=== PATIENT | male | born 1945 | race Caucasian/White ===

== ENCOUNTER → 2018-06-08 | Outpatient (CLI) | payer BC, MEDICARE ==
[~2018-06-08] MED LIST: ALLOPURINOL100 MG PO; ASPIR 8181 MG PO; CINNAMON500 MG PO; CIPRO500 MG PO; CITALOPRAM HBR40 MG PO; CO Q-10200 MG PO; CO Q10200 MG PO; DILTIAZEM 24HR180 MG PO; FISH OIL 1,0001 EAC2 PO; FISH/FLAX/BORAGE PO; GARLIC1000 MG PO; GARLIC2000 MG PO; GINKGO BILOBA120 MG PO; GINKO BILOBA PO; GLUCOSAMINE &1 EAC1 PO; HYDROCHLOROTHIA25 MG PO; MAGNESIUM PO; MELOXICAM15 MG PO; METOPROLOL SUCC50 MG PO; MILK THISTLE500 MG PO; NORCO 10-325 T1 EACH PO; OMEPRAZOLE40 MG PO; POTASSIUM GLUCO99 MG PO; POTASSIUM GLUCONATE PO; PRAVASTATIN SOD40 MG PO; RAMIPRIL10 MG PO; RAMIPRIL5 MG PO; RANEXA500 MG PO; SELENIUM200 MC1 PO; SELENOMAX200 MCG PO; VIT A PO; VIT D3 PO; VIT E PO; VITAMIN A8000 UNIT PO; VITAMIN B COMP1 EACH PO; VITAMIN C500 M1 PO; VITAMIN D-32000 UNIT PO; VITAMIN D31000 UNI1 PO; VITAMIN E1000 UNI2 PO; [UNRECOGNIZED DRUG - OTHER] PO
--- NOTE | 2018-06-08 12:17 | Diagnostic Imaging Report ---
PROCEDURE:CT PELVIS WITHOUT CONTRAST COMPARISON:None. INDICATIONS:HERNIA TECHNIQUE:CT images were created without intravenous contrast. FINDINGS: SOFT TISSUES: Fat containing right sided femoral hernia (anterior to the right inguinal canal) with fat stranding suggestive of inflammation/incarceration. No bowel loops are present within the hernia sac. Prominence adjacent subcentimeter lymph nodes, likely reactive. PELVIC NODES:Normal. PELVIC ORGANS:Surgical clips are present status post prostatectomy. BONES:No acute findings. No suspicious lytic or blastic lesions. Degenerative disc changes at L5-S1. OTHER:Atherosclerotic calcifications noted. CONCLUSION: Fat containing right sided femoral hernia with fat stranding suggestive of inflammation/incarceration. No bowel loops are present within the hernia sac. Findings discussed in person with Dr. Kyle Robbins on 06/08/18 at 12:10 PM. Dictated by: LOR TRIVEDI M.D. on 06/08/2018 at 12:23 Electronically approved by: LOR TRIVEDI M.D. on 06/08/2018 at 12:23
== END ==
LOC: CT 10:59
PROVIDERS: ATTEND Surgery
DX: R22.9 Localized swelling, mass and lump, unspecified (principal)
CPT/HCPCS: 72192

== ENCOUNTER → 2018-06-09 | Day surgery (SDC) | payer BC, MEDICARE ==
[2018-06-08 13:20] LABS: BASOPHILS # (AUTO) 0.1 (0.0-0.1); BASOPHILS % 0.5 % (0.0-1.0); EOSINOPHILS # (AUTO) 0.1 (0.0-0.4); EOSINOPHILS % 0.7 % (0.0-6.0); HEMOGLOBIN 14.8 g/dL (14.0-18.0); LYMPHOCYTES # (AUTO) 1.8 (1.0-3.2); LYMPHOCYTES % 15.5 % (18.0-39.1); MEAN CORPUSCULAR HEMOGLOBIN 30.6 pg (28-32); MEAN CORPUSCULAR HGB CONC 34.4 g/dL (31-35); MEAN CORPUSCULAR VOLUME 88.8 fL (81-99); MONOCYTES # (AUTO) 1.1 (0.2-0.8); NEUTROPHILS # (AUTO) 8.7 (2.1-6.9); PLATELET COUNT 304 x10e3/uL (140-360); RED BLOOD COUNT 4.84 x10e6/uL (4.3-5.7); RED CELL DISTRIBUTION WIDTH 13.4 % (11.7-14.4)
[2018-06-08 13:35] LABS: ANION GAP 17.3 mmol/L (8-16); BLOOD UREA NITROGEN 18 mg/dL (7-26); BUN/CREATININE RATIO 16 (6-25); CALCIUM 10.1 mg/dL (8.4-10.2); CARBON DIOXIDE 27 mmol/L (22-29); CHLORIDE 98 mmol/L (98-107); CREATININE, SERUM 1.11 mg/dL (0.72-1.25); EST GLOMERULAR FILTRATION RATE > 60 ML/MIN (60-); GLUCOSE 95 mg/dL (74-118); POTASSIUM 4.3 mmol/L (3.5-5.1); SODIUM 138 mmol/L (136-145)
--- NOTE | 2018-06-08 14:14 | Diagnostic Imaging Report ---
PROCEDURE: Frontal and lateral views of the chest. COMPARISON: None. INDICATIONS: PRE-OPERATIVE CHEST X-RAY FOR HERNIA SURGERY FINDINGS: Lines/tubes: None. Lungs: The lungs are well inflated and clear. Ill-defined 9 mm nodular density projecting over the posterior aspect of the right ninth rib seen only on the frontal view, is most consistent with a nipple shadow. There is no evidence of pneumonia or pulmonary edema. Pleura: There is no pleural effusion or pneumothorax. Heart and mediastinum: The heart and the mediastinum are normal. Bones: No acute bony abnormality. Degenerative changes in the thoracic spine. IMPRESSION: 1. No acute cardiopulmonary abnormalities. Ferdy Amador M.D. Dictated by: Fredy Amador M.D. on 06/08/2018 at 14:19 Electronically approved by: Fredy Amador M.D. on 06/08/2018 at 14:19
[~2018-06-09] MED LIST changes: +BUPIVACAINE 0.25%/EPI 30ML SDV INJ ONE; +CEFAZOLIN SOD 1 GM VIAL ONE; +DEXAMETHASONE SOD PHOS INJ 4 MG/ML VIAL ONE; +EPHEDRINE SULFATE INJ 50 MG/10 ML SYR ONE; +FENTANYL CITRATE/PF 100MCG/2 ML INJ ONE; +GLYCOPYRROLATE INJ 1MG/ 5 ML SYR ONE; +KETOROLAC TROMETHAMINE 30 MG/ML VIAL ONE; +LIDOCAINE HCL 2% LOCAL INJ 5 ML SDV VIAL INJ ONE; +MIDAZOLAM HCL 2 MG/2 ML VIAL ONE; +NEOSTIGMINE 5 MG/5ML SYR ONE; +ONDANSETRON HCL INJ 2 MG/ML VIAL ONE; +PHENYLEPHRINE HCL 1% 10 MG/ML VIAL ONE; +PROPOFOL IV EMULSION 10 MG/ML 20 ML VIAL ONE; +ROCURONIUM BROMIDE 10 MG/ML 5ML VIAL ONE; +SEVOFLURANE INHAL SOLN 250 ML PEN BTL ONE
--- NOTE | 2018-06-09 14:11 | Operative Report ---
DATE OF PROCEDURE: June 09, 2018 PREOPERATIVE DIAGNOSIS: Strangulated right femoral hernia. POSTOPERATIVE DIAGNOSIS: Strangulated ventral hernia at the right groin. PROCEDURE PERFORMED: Exploration of the right groin to repair strangulated ventral hernia at the right groin. INSPECTOR CASING: JOSÉ MIGUEL Blankenship ESTIMATED BLOOD LOSS: Minimal. DRAINS: None. COMPLICATIONS: None. INDICATIONS AND FINDINGS: The patient is a pleasant 72-year-old male who for about 2 months had noticed a lump in the right groin that progressively was getting larger and more tender. Patient stated that initially he could squeeze the bulge, but during the last several days it had become fixed and unable to be squeezed in. The patient had a history of radical prostatectomy with pelvic lymph node dissection several years ago for prostatic cancer. Preoperatively the patient's physical exam revealed a tender mass in the right groin located at what appeared to be in the femoral region of the groin. A preoperative CT scan revealed contents of the hernia to be fat with inflammatory changes. There was no evidence of intraoperative femoral herniation. INTRAOPERATIVE FINDINGS: The patient had a previous midline prostatectomy, a radical prostatectomy scar that was healed. Of note is the fact that he said that he was told that he had a hernia repair at the time of a radical prostatectomy by his urologist at the time. The patient's hernia was located at the level of the internal ring with extension of a strangulated piece of fat that extended below the inguinal external ring into the femoral region, thus the preoperative diagnosis of femoral herniation. However, there was no evidence of indirect hernia sac. The herniation was at the level of the internal ring with a herniation of properitoneal fat which had strangulated and necrosed. This defect was in the area of the internal ring. DESCRIPTION OF PROCEDURE: With the patient lying on the table in the supine position after administration of general anesthesia, he was prepped and draped for exploration of the right groin. An incision was made slightly inferior to the usual transverse inguinal incision for standard repair of right inguinal hernia because of the possibility of the preoperative diagnosis of femoral herniation. The dissection was carried down through the skin and subcutaneous tissue until the palpable hernia was identified. The palpable mass was identified, extended below the inguinal ligament into the right femoral region. However, it was then finally identified as originated from the right groin inguinal area through the external ring, and at this point then we exposed the external oblique aponeurosis, incised it, and then transected the external ring. Then we explored the right inguinal canal, developing leaves of the external oblique aponeurosis, and then dissecting free the herniated strangulated fat from the cord. This fat was then highly ligated and excised with 2-0 silk and Vicryl. There was no evidence of active infection or even fluid. It was just inflamed. At this point then we explored the cord. We searched for an indirect hernia sac. None was found. The internal inguinal ring was wide. We found a reflection of the peritoneum at that level, and then we dissected free the cord from the internal ring and preperitoneal area. We then reduced that wide neck of peritoneal reflection, which was empty, and then created a pocket in the preperitoneal space to accommodate the UltraPro hernia system oval type mesh, which was deployed in the groin region with the underlay part of the mesh over the direct space including the femoral canal region, which was free of any herniation. At this point, we then split the mesh at the level of the internal ring and secured the mesh to the local tissues using a series of interrupted 2-0 Ethibond sutures, which were also used to close the slit of the mesh to accommodate the cord. The repair appeared to be strong. The sponge and instrument count was correct. Irrigated the wound. We gave him a local field block with 0.25% Marcaine with epinephrine, and then we closed the wound in layers using 2-0 Vicryl for the external oblique aponeurosis, 2-0 catgut for the soft tissues, and the skin was closed using taurus. Marcaine 0.25% with epinephrine was given as local block at the end of the case to the wound also. The patient tolerated the procedure well, was taken to the recovery room in stable condition. Job#: [id number] EV
== END | disposition home or self-care (01) ==
LOC: OR 07:02
PROVIDERS: ATTEND Surgery
DX: K43.6 Other and unspecified ventral hernia with obstruction, without gangrene (principal); I10 Essential (primary) hypertension; E78.5 Hyperlipidemia, unspecified; I25.2 Old myocardial infarction; I25.10 Atherosclerotic heart disease of native coronary artery without angina pectoris; M19.90 Unspecified osteoarthritis, unspecified site; K21.9 Gastro-esophageal reflux disease without esophagitis; N20.0 Calculus of kidney; Z01.812 Encounter for preprocedural laboratory examination; Z01.818 Encounter for other preprocedural examination; Z79.82 Long term (current) use of aspirin; Z85.46 Personal history of malignant neoplasm of prostate; Z87.01 Personal history of pneumonia (recurrent)
CPT/HCPCS: 36415; 49561; 49568; 71046; 80048; 85025; 88302; C1781; J0690; J1100; J1885; J2001; J2250; J2370; J2405; J3490

== ENCOUNTER 2018-06-16 17:21 | Inpatient (IN) | payer BC, MEDICARE ==
[~2018-06-16] VITALS: Ht 160 cm; Wt 73.0 kg
[~2018-06-16 17:21] MED LIST changes: -BUPIVACAINE 0.25%/EPI 30ML SDV INJ ONE; -CEFAZOLIN SOD 1 GM VIAL ONE; -DEXAMETHASONE SOD PHOS INJ 4 MG/ML VIAL ONE; -EPHEDRINE SULFATE INJ 50 MG/10 ML SYR ONE; -FENTANYL CITRATE/PF 100MCG/2 ML INJ ONE; -GLYCOPYRROLATE INJ 1MG/ 5 ML SYR ONE; -KETOROLAC TROMETHAMINE 30 MG/ML VIAL ONE; -LIDOCAINE HCL 2% LOCAL INJ 5 ML SDV VIAL INJ ONE; -MIDAZOLAM HCL 2 MG/2 ML VIAL ONE; -NEOSTIGMINE 5 MG/5ML SYR ONE; -ONDANSETRON HCL INJ 2 MG/ML VIAL ONE; -PHENYLEPHRINE HCL 1% 10 MG/ML VIAL ONE; -PROPOFOL IV EMULSION 10 MG/ML 20 ML VIAL ONE; -ROCURONIUM BROMIDE 10 MG/ML 5ML VIAL ONE; -SEVOFLURANE INHAL SOLN 250 ML PEN BTL ONE
[2018-06-16] MEDS ORDERED: HYDROCODONE/APAP 7.5MG-325MG 1 EA TAB PO PRN (18:45)
[2018-06-16] MEDS ORDERED: LACTATED RINGER'S 1,000 ML ONE (18:45)
[2018-06-16] MEDS: LACTATED RINGER'S 1,000 ML IV SCH (18:48)
[2018-06-16 18:50] LABS: BASOPHILS # (AUTO) 0.1 (0.0-0.1); BASOPHILS % 0.6 % (0.0-1.0); EOSINOPHILS # (AUTO) 0.2 (0.0-0.4); EOSINOPHILS % 1.9 % (0.0-6.0); HEMATOCRIT 37.8 % (38.2-49.6); HEMOGLOBIN 13.2 g/dL (14.0-18.0); LYMPHOCYTES # (AUTO) 1.7 (1.0-3.2); LYMPHOCYTES % 15.8 % (18.0-39.1); MEAN CORPUSCULAR HEMOGLOBIN 30.8 pg (28-32); MEAN CORPUSCULAR HGB CONC 34.9 g/dL (31-35); MEAN CORPUSCULAR VOLUME 88.1 fL (81-99); MONOCYTES # (AUTO) 0.8 (0.2-0.8); MONOCYTES % 7.2 % (4.4-11.3); NEUTROPHILS # (AUTO) 7.8 (2.1-6.9); NEUTROPHILS % 72.9 % (38.7-80.0); PLATELET COUNT 432 x10e3/uL (140-360); RED BLOOD COUNT 4.29 x10e6/uL (4.3-5.7); RED CELL DISTRIBUTION WIDTH 13.1 % (11.7-14.4)
[2018-06-16 18:54] LABS: BILIRUBIN,URINE NEGATIVE (NEGATIVE); CLARITY,URINE SL CLOUDY (CLEAR); COLOR,URINE YELLOW (YELLOW); KETONES,URINE 1+ (NEGATIVE); LEUKOCYTE ESTERASE ,URINE 2+ (NEGATIVE); NITRITE,URINE NEGATIVE (NEGATIVE); PROTEIN,URINE DIPSTICK 2+ (NEGATIVE); URINE UROBILINOGEN 0.2 mg/dL (0.2 - 1)
[2018-06-16 18:57] LABS: BACTERIA,URINE RARE /HPF; MUCUS,URINE FEW (RARE); WBC,URINE (MAN) 21-50 /HPF (0-5)
[2018-06-16 19:12] LABS: ANION GAP 18.5 mmol/L (8-16); CALCIUM 9.8 mg/dL (8.4-10.2); CREATININE, SERUM 1.25 mg/dL (0.72-1.25); POTASSIUM 3.5 mmol/L (3.5-5.1)
[2018-06-16] MEDS ORDERED: METOPROLOL SUCC25 MG PO (19:35)
[2018-06-16] MEDS ORDERED: PRAVASTATIN SOD40 MG PO (19:35)
[2018-06-16] MEDS ORDERED: OMEPRAZOLE40 MG PO (19:35)
[2018-06-16] MEDS ORDERED: PROMETHAZINE HC25 M1 PO (19:35)
[2018-06-16] MEDS ORDERED: ESIDRIX25 MG PO (19:35)
[2018-06-16] MEDS ORDERED: ASPIR 8181 MG PO (19:37)
[2018-06-16] MEDS: VANCOMYCIN 1GM/NS 250 ML 250 ML IV SCH (19:47)
[2018-06-16 20:45] VITALS: BP 127/75
[2018-06-16 22:00] VITALS: BP 127/75
[2018-06-16 23:40] VITALS: BP 98/53
[2018-06-16] MEDS: CEFOXITIN SOD 1 GM VIAL IV SCH ×2 (23:45→23:48)
[2018-06-17] VITALS (8 sets, daily range): BP systolic 115–139; BP diastolic 60–67
[2018-06-17] MEDS ORDERED: CEFOXITIN 1GM/ DEXTROSE 50ML 50 ML IV SCH
[2018-06-17] MEDS: CEFOXITIN SOD 1 GM VIAL IV SCH ×4 (06:37→23:40)
[2018-06-17] MEDS: VANCOMYCIN 1GM/NS 250 ML 250 ML IV SCH ×2 (06:37→19:35)
[2018-06-17] MEDS: ASPIRIN 81 MG CHEW TAB PO SCH (09:00)
[2018-06-17] MEDS: ALLOPURINOL 100 MG TAB PO SCH (09:00)
[2018-06-17] MEDS: RAMIPRIL 5 MG CAP PO SCH (09:00)
[2018-06-17] MEDS: HYDROCHLOROTHIAZIDE 25 MG TAB PO SCH (09:00)
[2018-06-17] MEDS: DILTIAZEM HCL 180 MG CAP CD PO SCH (09:00)
[2018-06-17] MEDS: LACTATED RINGER'S 1,000 ML IV SCH ×2 (11:00→23:30)
[2018-06-17] MEDS ORDERED: FENTANYL CITRATE/PF 100MCG/2 ML INJ ONE (14:21)
[2018-06-17] MEDS ORDERED: MIDAZOLAM HCL 2 MG/2 ML VIAL ONE (14:21)
[2018-06-17] MEDS ORDERED: SEVOFLURANE INHAL SOLN 250 ML PEN BTL ONE (17:32)
[2018-06-17] MEDS ORDERED: LIDOCAINE HCL 2% LOCAL INJ 5 ML SDV VIAL INJ ONE (17:32)
[2018-06-17] MEDS ORDERED: EPHEDRINE SULFATE INJ 50 MG/10 ML SYR ONE (17:32)
[2018-06-17] MEDS ORDERED: PROPOFOL IV EMULSION 10 MG/ML 20 ML VIAL ONE (17:32)
[2018-06-17] MEDS ORDERED: ONDANSETRON HCL INJ 2 MG/ML VIAL ONE (17:32)
[2018-06-17] MEDS ORDERED: DEXAMETHASONE SOD PHOS INJ 4 MG/ML VIAL ONE (17:32)
[2018-06-17] MEDS ORDERED: VANCOMYCIN 1GM/NS 250 ML 250 ML ONE (19:27)
--- NOTE | 2018-06-17 20:06 | Operative Report ---
DATE OF PROCEDURE: June 17, 2018 PREOPERATIVE DIAGNOSIS: Wound hematoma, right groin, and cellulitis, right groin, following right inguinal hernia repair. PROCEDURE PERFORMED: Wound irrigation and evacuation of residual hematoma with packing of the cavity. ANESTHESIA: General. ESTIMATED BLOOD LOSS: Minimal. DRAINS: None. COMPLICATIONS: None. INDICATIONS AND FINDINGS: The patient is a 72-year-old male who 6 days ago had undergone emergency surgery for incarcerated, strangulated right inguinal hernia with strangulation of small amount of fat. The patient now presented on 06/16/2018 to the office with some swelling and pain of the right groin. There were some erythema and some fluctuance in the office. The wound was partially open. Culture and sensitivities were taken, and the cavity was then packed. The patient was admitted for intravenous antibiotics and for further debridement tomorrow. INTRAOPERATIVE FINDINGS: The patient had a cavity that was almost totally drained of any hematoma. There was no actual pus. That was a small residual amount of hematoma that was evacuated and irrigated out. There was some slight erythema of the skin edges consistent with cellulitis. The culture and sensitivities are negative so far. DESCRIPTION OF PROCEDURE: With the patient lying on the operative table in the supine position, after administration of general anesthesia, he was prepped and draped for evacuation of hematoma and irrigation of the wound. Several taurus were removed, but leaving about two-thirds of the taurus. The middle part of the incision was then opened. The old packing had been removed. The cavity was copiously irrigated. A small amount of blood, if any, was obtained. There was no pus coming out. At this point, then we packed the wound with iodoform gauze and sterile dressing was applied. The patient will be admitted to continue IV antibiotics, and tomorrow we will be placing a wound VAC. Job#: [id number]
[2018-06-18] VITALS (7 sets, daily range): BP systolic 102–137; BP diastolic 50–72
[2018-06-18 05:45] LABS: ANION GAP 14.2 mmol/L (8-16); BLOOD UREA NITROGEN 19 mg/dL (7-26); BUN/CREATININE RATIO 20 (6-25); CALCIUM 9.4 mg/dL (8.4-10.2); CARBON DIOXIDE 24 mmol/L (22-29); CHLORIDE 104 mmol/L (98-107); CREATININE, SERUM 0.93 mg/dL (0.72-1.25); EST GLOMERULAR FILTRATION RATE > 60 ML/MIN (60-); GLUCOSE 139 mg/dL (74-118); POTASSIUM 4.2 mmol/L (3.5-5.1); SODIUM 138 mmol/L (136-145)
[2018-06-18] MEDS: CEFOXITIN SOD 1 GM VIAL IV SCH ×4 (06:30→23:43)
[2018-06-18] MEDS: VANCOMYCIN 1GM/NS 250 ML 250 ML IV SCH ×2 (06:30→18:35)
[2018-06-18] MEDS: ASPIRIN 81 MG CHEW TAB PO SCH (08:48)
[2018-06-18] MEDS: DILTIAZEM HCL 180 MG CAP CD PO SCH (08:48)
[2018-06-18] MEDS: ALLOPURINOL 100 MG TAB PO SCH (08:48)
[2018-06-18] MEDS: HYDROCHLOROTHIAZIDE 25 MG TAB PO SCH (08:48)
[2018-06-18] MEDS: RAMIPRIL 5 MG CAP PO SCH (08:48)
[2018-06-18] MEDS: LACTATED RINGER'S 1,000 ML IV SCH ×2 (13:00→21:58)
[2018-06-18] MEDS: HYDROMORPHONE 1MG/1ML INJ IV PRN (15:50)
[2018-06-19] VITALS (9 sets, daily range): BP systolic 102–127; BP diastolic 50–69
[2018-06-19] MEDS: VANCOMYCIN 1GM/NS 250 ML 250 ML IV SCH ×2 (05:45→19:13)
[2018-06-19] MEDS: CEFOXITIN SOD 1 GM VIAL IV SCH ×3 (05:45→17:46)
[2018-06-19] MEDS: FLUCONAZOLE 100 MG TAB PO SCH (08:42)
[2018-06-19] MEDS: RAMIPRIL 5 MG CAP PO SCH (08:42)
[2018-06-19] MEDS: DILTIAZEM HCL 180 MG CAP CD PO SCH (08:42)
[2018-06-19] MEDS: HYDROCHLOROTHIAZIDE 25 MG TAB PO SCH (08:42)
[2018-06-19] MEDS: ASPIRIN 81 MG CHEW TAB PO SCH (08:42)
[2018-06-19] MEDS: ALLOPURINOL 100 MG TAB PO SCH (08:42)
[2018-06-19] MEDS: LACTATED RINGER'S 1,000 ML IV SCH ×2 (18:13→22:23)
[2018-06-20] VITALS (8 sets, daily range): BP systolic 111–127; BP diastolic 56–72
[2018-06-20] MEDS: CEFOXITIN SOD 1 GM VIAL IV SCH ×5 (00:22→23:57)
[2018-06-20] MEDS: VANCOMYCIN 1GM/NS 250 ML 250 ML IV SCH ×2 (06:50→18:46)
[2018-06-20] MEDS: ALLOPURINOL 100 MG TAB PO SCH (08:54)
[2018-06-20] MEDS: HYDROCHLOROTHIAZIDE 25 MG TAB PO SCH (08:54)
[2018-06-20] MEDS: FLUCONAZOLE 100 MG TAB PO SCH (08:54)
[2018-06-20] MEDS: ASPIRIN 81 MG CHEW TAB PO SCH (08:55)
[2018-06-20] MEDS: DILTIAZEM HCL 180 MG CAP CD PO SCH (08:55)
[2018-06-20] MEDS: RAMIPRIL 5 MG CAP PO SCH (08:55)
[2018-06-20] MEDS: LACTATED RINGER'S 1,000 ML IV SCH ×2 (10:15→21:27)
[2018-06-21] VITALS: BP 126/68
[2018-06-21 04:00] VITALS: BP 97/78
[2018-06-21] MEDS: VANCOMYCIN 1GM/NS 250 ML 250 ML IV SCH (05:45)
[2018-06-21] MEDS: CEFOXITIN SOD 1 GM VIAL IV SCH ×2 (05:45→12:27)
[2018-06-21 07:20] VITALS: BP 122/62
[2018-06-21 07:32] VITALS: BP 122/62
[2018-06-21] MEDS: ALLOPURINOL 100 MG TAB PO SCH (09:16)
[2018-06-21] MEDS: HYDROCHLOROTHIAZIDE 25 MG TAB PO SCH (09:16)
[2018-06-21] MEDS: FLUCONAZOLE 100 MG TAB PO SCH (09:16)
[2018-06-21] MEDS: RAMIPRIL 5 MG CAP PO SCH (09:16)
[2018-06-21] MEDS: DILTIAZEM HCL 180 MG CAP CD PO SCH (09:16)
[2018-06-21] MEDS: ASPIRIN 81 MG CHEW TAB PO SCH (09:16)
[2018-06-21] MEDS: HYDROMORPHONE 1MG/1ML INJ IV PRN ×2 (09:35→13:35)
[2018-06-21 11:12] VITALS: BP 111/63
--- NOTE | 2018-06-21 12:38 | Discharge Summary ---
DISCHARGE DIAGNOSIS: Infected wound hematoma of the right groin with cellulitis of the right groin. PROCEDURES PERFORMED DURING THIS HOSPITALIZATION: Drainage of residual hematoma of the right groin following repair of right inguinal hernia with mesh and wound irrigation on 06/17/2018. 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 Patient, following that, was discharged and then he was now readmitted to the hospital with erythema and swelling of the right groin incision. The patient had a wound culture taken from the wound drainage that was negative; however, because of the placement of the mesh in that location, he was treated as infected hematoma with antibiotics with vancomycin IV as well as Mefoxin IV. With this treatment, his condition resolved, the cellulitis disappeared. The drainage stopped and on Thursday, June the , had placement of a wound VAC. The patient was discharged on 06/21/2018, in stable condition. He was discharged home to be followed up by the wound care clinic or visiting nurse for the wound VAC changes and replacement, and to be followed up by me in my office on for postop wound check. DISCHARGE MEDICINES 1. Septra DS 1 p.o. b.i.d. for 10 days. 2. Clindamycin 300 mg p.o. t.i.d. for a week. 3. Lortab 7.5 mg 1 p.o. q.4-6 hours p.r.n. for pain, #30, no refills. Patient was given wound care and instructions to have no work tolerance. Patient has a history of urinary frequency and he had a Hodgson that had been placed during the previous admission, and it was removed today at the request of the patient. The patient has a urologist taking care of his urinary problems, and he will be following up with him in case that there is a problem with urination. KEON WILCOX MD Job#: [id number] TA
[2018-06-21 15:32] VITALS: BP 122/64
[2018-06-21] MEDS ORDERED: CLINDAMYCIN HC300 MG PO (15:46)
[2018-06-21] MEDS ORDERED: BACTRIM DS TAB1 EACH PO (15:49)
== END 2018-06-21 16:45 | disposition home or self-care (01) | DRG 908 ==
LOC: ER 17:21 → ERHOLD 18:47 → MED/SURG3 20:33
PROVIDERS: ADMIT Surgery; ATTEND Surgery
PROC: 0Y950ZZ Drainage of Right Inguinal Region, Open Approach (ICD-10-PCS; principal; 2018-06-17 18:54)
DX: T85.79XA Infection and inflammatory reaction due to other internal prosthetic devices, implants and grafts, initial encounter (principal); L03.314 Cellulitis of groin; L76.32 Postprocedural hematoma of skin and subcutaneous tissue following other procedure; R35.0 Frequency of micturition; I10 Essential (primary) hypertension; I25.10 Atherosclerotic heart disease of native coronary artery without angina pectoris; K21.9 Gastro-esophageal reflux disease without esophagitis
CPT/HCPCS: 36415; 80048; 80202; 81001; 85025; 87071; 87086; 87205; 93005; 97605; 97607; 99284; J0694; J1100; J1170; J2001; J2250; J2405; J3370; J7120

== ENCOUNTER → 2018-06-25 | Outpatient (CLI) | payer BC, MEDICARE ==
[~2018-06-25] MED LIST changes: +BACTRIM DS TAB1 EACH PO; +CLINDAMYCIN HC300 MG PO; +ESIDRIX25 MG PO; +METOPROLOL SUCC25 MG PO; +PROMETHAZINE HC25 M1 PO
== END ==
LOC: WCC 11:16
PROVIDERS: ATTEND Internal Medicine Infectious Disease
DX: T81.89XA Other complications of procedures, not elsewhere classified, initial encounter (principal)

== ENCOUNTER → 2018-06-28 | Outpatient (CLI) | payer BC, MEDICARE | LOC: WCC 11:45 | PROVIDERS: ATTEND Family Medicine Adult Medicine | DX: T81.89XA Other complications of procedures, not elsewhere classified, initial encounter (principal) ==

== ENCOUNTER → 2018-07-01 | Outpatient (CLI) | payer BC, MEDICARE | LOC: WCC 04:00 | PROVIDERS: ATTEND Family Medicine Adult Medicine | DX: T81.89XA Other complications of procedures, not elsewhere classified, initial encounter (principal) ==

== ENCOUNTER → 2018-07-05 | Outpatient (CLI) | payer BC, MEDICARE | LOC: WCC 09:26 | PROVIDERS: ATTEND Family Medicine Adult Medicine | DX: T81.89XA Other complications of procedures, not elsewhere classified, initial encounter (principal) ==

== ENCOUNTER → 2019-09-26 | Day surgery (SDC) | payer BC, MEDICARE ==
[~2019-09-26] MED LIST changes: +ACETAMINOPHEN/CODEINE 300MG - 30MG TAB ONE; +BUPIVACAINE 0.25%/EPI 30ML SDV INJ ONE; +CEFAZOLIN SOD 1 GM/NS 50ML 50 ML IV ONE; +COQ1050 MG PO; +CRESTOR20 MG PO; +DEXAMETHASONE SOD PHOS INJ 4 MG/ML VIAL ONE; +FENTANYL CITRATE/PF 100MCG/2 ML INJ ONE; +GINKGO BILOBA40 M1 PO; +LIDOCAINE HCL 2% LOCAL INJ 5 ML SDV VIAL INJ ONE; +MIDAZOLAM HCL 2 MG/2 ML VIAL ONE; +ONDANSETRON HCL INJ 2MG/ML 2ML 2 MG/ML VIAL ONE; +PROPOFOL IV EMULSION 10 MG/ML 20 ML VIAL ONE; +SEVOFLURANE INHAL SOLN 250 ML PEN BTL ONE; +VITAMIN D400 UNIT PO; +VITAMIN E400 UNI1 PO
[2019-09-26 10:55] VITALS: BP 145/80
--- NOTE | 2019-09-26 11:13 | Operative Report ---
DATE OF PROCEDURE: 09/26/2019 SURGEON: Kyle Robbins MD PREOPERATIVE DIAGNOSIS: Symptomatic left inguinal hernia. POSTOPERATIVE DIAGNOSIS: Symptomatic left inguinal hernia. PROCEDURE PERFORMED: Repair of left inguinal hernia. NON DESTRUCTIVE EVALUATION MANAGER: JOSÉ MIGUEL Blankenship ESTIMATED BLOOD LOSS: Minimal. DRAINS: None. COMPLICATIONS: None. INDICATION AND FINDINGS: The patient is a 74-year-old male admitted for repair of symptomatic left inguinal hernia. He had undergone repair of right inguinal hernia in 2018 and now returns for repair. The patient has history of prostatectomy and of pelvic lymphadenectomy, cancer of the prostate. He is currently being followed by his urologist for the cancer of the prostate. INTRAOPERATIVE FINDINGS: Indirect hernia with a large wide-mouth peritoneal reflection. The entire hernia was reduced and then we placed the Ultrapro hernia system in the preperitoneal space. DESCRIPTION OF PROCEDURE: With the patient lying on the operative table in the supine position after administration of general anesthesia, he was prepped and draped for repair of a left inguinal hernia. Preemptive anesthesia was given with 0.25% Marcaine with epinephrine as an ilioinguinal nerve block and an incisional nerve block. A transverse groin incision was made, deepened through the skin and subcutaneous tissue, Moisés fascia until the external oblique aponeurosis was identified. This was incised along the course of the fibers transecting the external inguinal ring. Medial and lateral leaves were developed. The cord was mobilized at the level of the pubic tubercle and retracted away from the operative field by Juan drain. The cremasteric layer was incised and indirect hernia sac which was part of the peritoneal reflection was found. It was wide mouth and we decided to go ahead and reduce all of that and not excise the peritoneal reflection. We then after reduction of the hernia and developing the preperitoneal space, the mesh was deployed with the underlay part of the mesh over the direct space and the underlay part of the mesh over the inguinal canal floor. A slit was made to accommodate the cord. Then, the cord was secured to the local tissues using a series of interrupted 2-0 Ethibond sutures combined with 2-0 Vicryl. The slit was made to accommodate the port and closed with 2-0 Ethibond also. The sponge and instrument counts were pronounced correct. The wound was then closed in layers using 2-0 Vicryl for the external oblique aponeurosis, 2-0 plain catgut for the soft tissues, and the skin was closed using taurus. 0.25% Marcaine with epinephrine was given as a block at the end of the case. The patient tolerated the procedure well, taken to the recovery room in stable condition. MD ELMER Cortez/MADDY /[id number]
== END | disposition home or self-care (01) ==
LOC: OR 05:27
PROVIDERS: ATTEND Surgery
DX: K40.90 Unilateral inguinal hernia, without obstruction or gangrene, not specified as recurrent (principal); I10 Essential (primary) hypertension; E78.5 Hyperlipidemia, unspecified; I20.9 Angina pectoris, unspecified; I25.2 Old myocardial infarction; N20.0 Calculus of kidney; K21.9 Gastro-esophageal reflux disease without esophagitis; I83.90 Asymptomatic varicose veins of unspecified lower extremity; Z88.8 Allergy status to other drugs, medicaments and biological substances; Z79.82 Long term (current) use of aspirin; Z85.46 Personal history of malignant neoplasm of prostate; Z90.79 Acquired absence of other genital organ(s)
CPT/HCPCS: 49505; C1781; J0690; J1100; J2001; J2250; J2405; J2704; J3010

== ENCOUNTER → 2019-10-28 | Day surgery (SDC) | payer BC, MEDICARE ==
[2019-10-26 12:31] LABS: BASOPHILS % 0.6 % (0.0-1.0); EOSINOPHILS # (AUTO) 0.3 (0.0-0.4); EOSINOPHILS % 4.3 % (0.0-6.0); HEMATOCRIT 41.9 % (38.2-49.6); HEMOGLOBIN 13.9 g/dL (14.0-18.0); LYMPHOCYTES # (AUTO) 1.8 (1.0-3.2); LYMPHOCYTES % 27.6 % (18.0-39.1); MEAN CORPUSCULAR HEMOGLOBIN 29.8 pg (28-32); MEAN CORPUSCULAR HGB CONC 33.2 g/dL (31-35); MEAN CORPUSCULAR VOLUME 89.9 fL (81-99); MONOCYTES # (AUTO) 0.5 (0.2-0.8); MONOCYTES % 7.8 % (4.4-11.3); NEUTROPHILS % 59.4 % (38.7-80.0); PLATELET COUNT 239 x10e3/uL (140-360); RED BLOOD COUNT 4.66 x10e6/uL (4.3-5.7); RED CELL DISTRIBUTION WIDTH 14.2 % (11.7-14.4)
[~2019-10-28] MED LIST changes: -ACETAMINOPHEN/CODEINE 300MG - 30MG TAB ONE; -BUPIVACAINE 0.25%/EPI 30ML SDV INJ ONE; -CEFAZOLIN SOD 1 GM/NS 50ML 50 ML IV ONE; -DEXAMETHASONE SOD PHOS INJ 4 MG/ML VIAL ONE; -FENTANYL CITRATE/PF 100MCG/2 ML INJ ONE; +HYOSCYAMINE 0.125 MG TAB ONE; -LIDOCAINE HCL 2% LOCAL INJ 5 ML SDV VIAL INJ ONE; -MIDAZOLAM HCL 2 MG/2 ML VIAL ONE; -ONDANSETRON HCL INJ 2MG/ML 2ML 2 MG/ML VIAL ONE; -PROPOFOL IV EMULSION 10 MG/ML 20 ML VIAL ONE; +PROPOFOL IV EMULSION 10 MG/ML 50 ML VIAL ONE; -SEVOFLURANE INHAL SOLN 250 ML PEN BTL ONE
[2019-10-28 18:00] VITALS: BP 115/71
--- NOTE | 2019-10-28 23:59 | Operative Report ---
DATE OF PROCEDURE: 10/28/2019 SURGEON: Michael Oh MD PROCEDURE: Colonoscopy with polypectomy. INDICATION FOR COLONOSCOPY: Surveillance colonoscopy, personal history of colon polyps, and mother with colon cancer. MEDICATIONS: The patient was done under MAC, please see anesthesiologist's note. PROCEDURE IN DETAIL: With the patient in left lateral decubitus position, flexible fiberoptic Olympus colonoscope was inserted into the rectum with ease and advanced all the way to the cecum. The scope was then withdrawn slowly and mucosa overlying the cecum, ascending colon, and transverse colon appeared to be within normal limits. Diverticular disease was noted to involve the descending and the sigmoid colon. One polyp was removed per cold biopsy forceps from the sigmoid colon. The rectum appeared to be within normal limits. The scope was then retroflexed into the distal rectum and large internal hemorrhoids were noted none of which was actively bleeding. The scope was then straightened out, it was subsequently withdrawn, and the patient tolerated the procedure well. IMPRESSION: 1. Diverticulosis. 2. Sigmoid colon polyp, cold biopsy. 3. Internal hemorrhoids none actively bleeding. PLAN: Follow up histology. Initiate high-fiber, low-fat diet. Initiate high-fiber supplement. The patient might benefit from a followup colonoscopy in 3 to 5 years. Michael Oh MD [facility] [place]/MODL /[id number] cc: Washington Crowley MD
== END | disposition home or self-care (01) ==
LOC: OR 14:26
PROVIDERS: ATTEND Internal Medicine Gastroenterology
DX: Z12.11 Encounter for screening for malignant neoplasm of colon (principal); K63.5 Polyp of colon; K57.30 Diverticulosis of large intestine without perforation or abscess without bleeding; K64.8 Other hemorrhoids; I25.10 Atherosclerotic heart disease of native coronary artery without angina pectoris; I10 Essential (primary) hypertension; E78.5 Hyperlipidemia, unspecified; I25.2 Old myocardial infarction; N20.0 Calculus of kidney; M10.9 Gout, unspecified; Z88.8 Allergy status to other drugs, medicaments and biological substances; Z01.812 Encounter for preprocedural laboratory examination; Z79.82 Long term (current) use of aspirin; Z85.46 Personal history of malignant neoplasm of prostate; Z80.0 Family history of malignant neoplasm of digestive organs
CPT/HCPCS: 36415; 45380; 85025; J2704; 45384